=== PATIENT | female | born 1960 | race American Indian/Alaskan Native ===

== ENCOUNTER 2020-08-26 09:01 | Day surgery (SDC) | payer MEDICAID, OTHER ==
[2020-08-26] MEDS ORDERED: SODIUM CHLORIDE 0.9% 1000 ML 1,000 ML ONE (09:33)
--- NOTE | 2020-08-26 09:59 | Anesthesia Day of Surgery ---
Anesthesia Day of Surgery - Day of Surgery Patient Examined: Yes Patient H&P Reviewed: Yes Patient is NPO: Yes
--- NOTE | 2020-08-26 10:01 | Anesthesia Consultation ---
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
[2020-08-26] MEDS ORDERED: LIDOCAINE MPF (2%) 20 MG/1 ML VIAL 5 ML ONE (11:30)
[2020-08-26] MEDS ORDERED: propofoL 200 MG/20 ML VIAL IV ONE (11:31)
--- NOTE | 2020-08-26 11:57 | Short Stay Summary ---
Short Stay Documentation Date of service: 08/26/20 Narrative H&P: The patient presents for her first screening colonoscopy. No prior studies. Average risk profile. - History Past Medical History: heart failure, hypertension, hyperlipidemia, stroke, other (Asthma, anxiety) Past Surgical History: appendectomy Social history: no significant social history, other (Former smoker), no smoking - Allergies and Medications Current Medications: Allergies aspirin Allergy (Verified 08/19/14 15:25) Unknown codeine Allergy (Verified 08/19/14 15:20) Unknown latex Allergy (Verified 08/19/14 15:20) Unknown tetracycline Allergy (Verified 08/19/14 15:20) Unknown ADHESIVE TAPE Allergy (Uncoded 08/19/14 15:20) Unknown Home Medications Medication Instructions Recorded Confirmed Last Taken Type Atorvastatin [Lipitor] 1 tab PO DAILY 08/19/14 08/26/20 08/24/20 History Clopidogrel Bisulfate [Plavix] 1 tab PO DAILY 08/19/14 08/26/20 08/22/20 09:00 History Furosemide [Lasix] 1 tab PO DAILY 08/19/14 08/26/20 08/26/20 06:00 History Metoprolol [Lopressor TAB] 1 tab PO BID 08/19/14 08/26/20 08/26/20 06:00 History Pregabalin [Lyrica] 1 cap PO TID 08/19/14 08/26/20 08/21/20 History Amitriptyline [Elavil] 50 mg PO DAILY 08/26/20 08/26/20 08/26/20 09:00 History Atorvastatin [Lipitor Tab] 40 mg PO QHS 08/26/20 08/26/20 Unknown History Ergocalciferol(Vitamin D2)(Nf) 1.25 unit PO 1XW 08/26/20 08/26/20 Unknown History [Vitamin D (Nf)] Gabapentin [Neurontin] 600 mg PO Q8H 08/26/20 08/26/20 08/24/20 09:00 History Loratadine [Allergy Relief] 10 mg PO DAILY 08/26/20 08/26/20 Unknown History Losartan [Cozaar] 40 mg PO QDAY 08/26/20 08/26/20 Unknown History Potassium Chloride [Klor-Con 8] 10 meq PO QDAY 08/26/20 08/26/20 Unknown History Quetiapine Fumarate [SEROquel Xr] 300 mg PO QAM 08/26/20 08/26/20 Unknown History amLODIPine [Norvasc] 10 mg PO DAILY 08/26/20 08/26/20 08/26/20 06:00 History buPROPion HCL [Bupropion HCl Sr] 150 mg PO BID 08/26/20 08/26/20 Unknown History busPIRone [Buspar] 10 mg PO BID 08/26/20 08/26/20 08/23/20 History levETIRAcetam [Keppra TAB] 1,000 mg PO BID 08/26/20 08/26/20 08/26/20 08:00 His tory - Physical exam General appearance: no acute distress, well-nourished, obese Integumentary: no rash, no growths, no abnormal pigmentation HEENT: Atraumatic, PERRLA, EOMI, Mucous membr. moist/pink Lungs: Clear to auscultation, Normal air movement Breasts: deferred Heart: Regular rate, Normal S1, Normal S2, No murmurs, no Gallops Gastrointestinal: normoactive bowel sounds, no tenderness, no distended, no masses, no guarding, no organomegaly, no obese Female Genitourinary: deferred Rectal Exam: normal exam-external/orifice, normal rectal tone, no mass Extremities: no ischemia, pulses intact, pulses symmetrical, No edema, normal temperature, normal color, Full ROM Neurological: Normal gait, Normal speech, Strength at 5/5 X4 ext, Normal tone, Sensation intact, Cranial nerves 3-12 NL - Brief post op/procedure progress note Date of procedure: 08/26/20 Findings: see dictation Estimated blood loss: none Pathology: none Condition: stable - Disposition Condition at discharge: Good Disposition: DC-01 TO HOME OR SELFCARE - Discharge Diagnoses (1) Colon cancer screening Status: Acute Short Stay Discharge Plan Activity: other (No driving for 24 hours) Weight Bearing Status: Full Weight Bearing Diet: regular Follow up with: LALITO HANSON MD [Primary Care Provider] - 7 Days
--- NOTE | 2020-08-26 11:58 | Operative Report ---
Operative Report Operative Report: Date of procedure: 08/26/2020 Preprocedure diagnosis: Colon cancer screening, average risk profile. No prior studies. Post procedure diagnosis: Normal study Procedure: Colonoscopy to the cecum Endoscopist: Dr. Tate Anesthesia: Monitored anesthesia care per anesthesia department Estimated blood loss: 0 Medications: Monitored anesthesia care. See separate report by anesthesia for details. After careful discussion of the nature and purpose of the procedure as well as details of the technique risks benefits and alternatives the patient gave consent. Please see recent history and physical from the office. The patient was placed in the left lateral decubitus position and medicated per anesthesia. A rectal exam was performed sphincter tone was normal there were no masses palpable. The [place] 570 scope was passed transanally and advanced under continuous direct vision without difficulty to the cecum. The colon was well prepared. The cecum was normal. The ascending colon was normal and on forward and retroflexed views. The transverse colon, descending colon, and sigmoid colon were normal. The rectum was normal on forward and retroflexed views. The procedure was well-tolerated overall and the patient was observed in recovery. Conclusions: Normal colonoscopy to the cecum. Plan: Repeat colonoscopy in 10 years, sooner if clinically indicated. Signed electronically: Waylon Tate M.D.
--- NOTE | 2020-08-26 12:52 | Post Anesthesia Evaluation ---
- Post Anesthesia Evaluation Patient Participated: Yes Airway Patent: Yes Stable Respiratory Function: Yes Nausea/Vomiting: No Temp > 96.8F: Yes Pain Manageable: Yes Adequeate Hydration: Yes Anesthesia Complications: No Block Receding Appropriately: Not Applicable Patient on Ventilator: No
[2020-08-26 13:11] VITALS: BP 130/78
== END 2020-08-26 13:10 | disposition home or self-care (01) ==
LOC: GIO 09:01
PROVIDERS: ATTEND Internal Medicine Gastroenterology
DX: Z12.11 Encounter for screening for malignant neoplasm of colon (principal); I11.0 Hypertensive heart disease with heart failure; I50.9 Heart failure, unspecified; I42.9 Cardiomyopathy, unspecified; I25.10 Atherosclerotic heart disease of native coronary artery without angina pectoris; E78.00 Pure hypercholesterolemia, unspecified; J45.909 Unspecified asthma, uncomplicated; F41.9 Anxiety disorder, unspecified; K21.9 Gastro-esophageal reflux disease without esophagitis; E66.9 Obesity, unspecified; M79.10 Myalgia, unspecified site; Z88.6 Allergy status to analgesic agent; Z88.5 Allergy status to narcotic agent; Z91.041 Radiographic dye allergy status; Z88.8 Allergy status to other drugs, medicaments and biological substances; Z79.899 Other long term (current) drug therapy; Z87.891 Personal history of nicotine dependence; Z95.0 Presence of cardiac pacemaker; Z90.49 Acquired absence of other specified parts of digestive tract; Z68.32 Body mass index [BMI] 32.0-32.9, adult; Z98.51 Tubal ligation status; Z98.890 Other specified postprocedural states; Z86.73 Personal history of transient ischemic attack (TIA), and cerebral infarction without residual deficits
CPT/HCPCS: 45378; J2704; J7030